=== PATIENT | female | born 1985 | race Caucasian/White ===

== ENCOUNTER 2023-05-06 12:28 | Inpatient (IN) | payer BC, SELFPAY ==
--- NOTE | ~2023-05-06 | US_ITS ---
EXAMINATION: US VENOUS ULTRASOUND WITH DOPPLER LOWER EXTREMITY, LEFT CLINICAL INFORMATION: Calf pain COMPARISON: None available. TECHNIQUE: Ultrasound of the deep veins is performed from the hip to the calf with compression sonography and color and pulse Doppler assessment. Spectral analysis with color-flow imaging is performed. FINDINGS: Thrombus is present in the peroneal and posterior tibial veins extending into the popliteal vein. The femoral vein and common femoral vein as well as the profunda femoris vein appear unremarkable. US/US venous duplex LE LT IMPRESSION: DVT extending from the calf to the popliteal vein.
--- NOTE | ~2023-05-06 | CT_ITS ---
EXAMINATION: CT ANGIOGRAM OF THE CHEST WITH AND WITHOUT CONTRAST (CT PULMONARY ANGIOGRAM FOR PE) CLINICAL INFORMATION: Reason for Exam SOB, known DVT COMPARISON: None available. TECHNIQUE: Prior to contrast administration, noncontrast localization images were obtained. Subsequently, multidetector volumetric imaging was performed from the thoracic inlet to below the diaphragms following the administration of 65 mL Omnipaque 350 intravenous contrast. No contrast reaction reported Sagittal, coronal, and MIP oblique sagittal reformatted images were obtained on the CT workstation, uploaded to PACS, and reviewed. This CT examination was performed using dose optimization techniques as appropriate, variously including the following: *Automated exposure control *Adjustment of mA and/or kV according to patient size (this includes techniques or standardized protocols for targeted exams where dose is matched to indication/reason for exam; i.e. extremities or head) *Use of iterative reconstruction technique Total exam dose-length product 230 mGy-cm FINDINGS: QUALITY OF STUDY/CONTRAST BOLUS: Satisfactory. PULMONARY ARTERIES: This exam is positive for PE. On the left filling defect in 2 segments in the left lower lobe. On the right numerous right lower lobe segments demonstrating thrombus There is also a several right upper lobe segments and right middle lobe segments affected. Some of these areas described above are felt to be only partially occlusive while others appear totally occlusive There is no bowing of the septum. There is no reflux into the hepatic veins. The thoracic inlet is within normal limits. Centrally no significant coronary calcium is seen. Partially imaged upper abdominal structures are unremarkable. Imaging the lung wright. Right lung; No significant infiltrate or effusion. Left lung; No significant infiltrate or effusion. Review of the bone windows demonstrates no suspicious finding. CT/CT angio chest PE protocol IMPRESSION: This exam is abnormal. Positive for PE. Moderate burden. Right greater than left This critical result was discussed with Rosalba Mcpherson at 5:09 PM on 05/06/2023 and it was ascertained that the content and urgency of the report was understood at the time of direct communication. VTE: positive
--- NOTE | 2023-05-06 12:39 | ED.EXTPRO ---
HPI - Extremity Problem General Chief complaint: Extremity Problem Stated complaint: L calf pain Time Seen by Provider: 05/06/23 12:46 Source: patient Mode of arrival: ambulatory Limitations: no limitations History of Present Illness HPI Narrative: Patient is a 37 year old assigned female at with a history of anxiety presenting to the emergency department today with left calf pain and an episode of shortness of breath. Patient states that for the last 3 days she has had left calf pain. 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 Patient states that yesterday, she had an episode of feeling something get stuck in her chest and became short of breath. Patient states that the episode resolved fairly quickly. Patient denies any current dizziness, lightheadedness, abdominal pain, nausea, vomiting, fever, chills, blurry vision, double vision, loss of vision, chest pain, difficulty breathing, shortness of breath, back pain, night sweats, pain with urination, increased urinary frequency, increased urinary urgency, blood in her urine or stool, syncope or a near syncopal episode, recent trauma or falls, bowel incontinence, bladder incontinence, bowel retention, bladder retention, or any other complaints at this time. MD Complaint: extremity pain Onset (ago): day(s) (3) Pain Consistency: constant Location: left and lower extremity Severity scale (1-10): 4 Quality: aching and dull Relieving factors: nothing Exacerbating factors: nothing Associated symptoms: denies other symptoms Related Data Allergies Allergy/AdvReac Type Severity Reaction Status Date / Time No Known Allergies Allergy Unverified 04/05/20 19:27 [No Known Allergies*] Review of Systems Constitutional: Constitutional: Reports no additional constitutional complaints, Denies chills, Denies fever(s) and Denies night sweats Eyes: Eyes: Reports no additional eye complaints, Denies blurry vision, Denies change in vision, Denies diplopia, Denies eye discharge, Denies loss of vision and Denies eye pain ENT: Denies dizziness Cardiovascular: Cardiovascular: Reports no additional cardiovascular complaints, Denies chest pain, Denies lightheadedness, Denies Loss of Consciousness and Reports dyspnea (now resolved) Respiratory: Respiratory: Reports no additional respiratory complaints and Reports dyspnea (now resolved) Gastrointestinal: Gastrointestinal: Reports no additional gastrointestinal complaints, Denies abdominal pain, Denies melena, Denies hematochezia, Denies change in bowel habits and Denies change in stool character Genitourinary: Genitourinary: Denies hematuria, Denies urinary frequency, Denies dysuria, Denies urinary incontinence, Denies urinary hesitancy and Denies urinary urgency Musculoskeletal: Musculoskeletal: Reports no additional musculoskeletal complaints, Denies numbness and Denies tingling Comments: left lower leg pain Neurologic: Denies dizziness, Denies loss of vision, Denies numbness and Denies tingling Psychiatric: Psychiatric: Reports no additional psychiatric complaints Endocrine: Endocrine: Reports no additional endocrine complaints Hematologic/Lymphatic: Hematologic/Lymphatic: Reports no additional hematologic/lymphatic complaints Allergic/Immunologic: Allergic/Immunologic: Reports no additional allergic/immunologic complaints PMFSH Past Medical History Attestation statement: The following information was validated with the patient. Source: old records reviewed and nursing notes reviewed Social History Social History Advance Directives: No Advance Directives Information Provided: No Physical Exam Vital Signs: Vital Signs: Last Vital Signs Temp 97.9 F 05/06/23 12:40 Pulse 67 05/06/23 12:40 Resp 18 05/06/23 12:40 BP 120/78 05/06/23 12:40 Pulse Ox 99 05/06/23 12:40 O2 Del Method Room Air 05/06/23 12:40 BMI result Body Mass Index 26.1 Const: General: cooperative, no acute distress, alert and awake Nutritional Appearance: well nourished Orientation/consciousness: patient oriented x3 Limitations: no limitations HEENT: Head: Yes normal to inspection and Yes atraumatic Ears: hearing grossly normal bilaterally and external ears normal General nose exam: Normal external nose present, no nasal discharge noted and no epistaxis Face and sinus: Yes normal facial exam, No abrasion and No laceration Mouth: Normal oral and palatal mucosa present, no drooling and no muffled voice Eyes: General: appearance normal, both eyes and all related structures Periorbital: periorbital findings normal Eyelids: Yes eyelids normal Conjunctivae: conjunctivae normal Pupils: Equal, round and reactive pupils present EOM: EOMs intact bilaterally Neck: Neck: Yes normal visual inspection, Yes full ROM and Yes no lymphadenopathy Chest: Chest palpation & inspection: normal inspection of the chest Resp: Effort & Inspection: normal respiratory effort and able to speak in complete sentences GI: Inspection: Yes normal to inspection Neuro: General: patient oriented x3 and moves all extremities Cranial nerves: Yes Equal, round and reactive pupils present Cognition (Neuro): normal cognition Motor exam (neuro): 5/5 motor strength present throughout Sensory Exam: Normal double simultaneous stimulation for sensation Coordination: [id number] test normal Extrem: Other: left lower leg swelling General: Yes full ROM and Yes capillary refill normal Psych: Appearance: grossly normal Mental Status: mental status grossly normal Affect: normal affect Attitude: cooperative Thought process: Normal thought process present Thought content: Normal thought content present Insight: Good insight present (Psych) Course Course Course Narrative: RME - 37 yo female presents to the ER for evaluation of worsening left calf pain for the last 3 days. Recently ran 1/2 marathon so attributed it to that but has been getting worse. Minimal swelling per patient. PCP referred to her to the ER for U/S to r/o DVT. Plan: LE doppler Medications Administered Discontinued Medications Generic Name Dose Route Start Last Admin Trade Name Marilu PRN Reason Stop Dose Admin Iohexol 100 ml 05/06/23 16:51 05/06/23 16:51 Iohexol 350 Mg/Ml 100 Ml Infus..Btl IV 05/06/23 16:52 65 ml ONCE ONE Administration Medical Decision Making Medical Decision Making [facility] Narrative: Patient is a 37 year old assigned female at with no reported medical history presenting to the emergency department today with left calf pain and a resolved episode of SOB. Patient's physical exam was as noted in the physical exam portion of this note. Patient's blood work was unremarkable. Patient's left lower leg US showed a DVT. Patient's CTA showed multiple pulmonary emboli in both lungs equaling a moderate clot burden with the right more burdened than the left. I spoke to the vascular team who recommended admission. I spoke with the hospitalist who agreed to admission and recommended beginning heparin. I explained my physical exam findings as well as all test results to the patient. I answered all questions asked by the patient. Patient verbalized agreement and understanding with this treatment plan and admission. Differential Diagnosis Differential Diagnoses: The differential diagnosis associated with the presentation includes DVT PE Calf pain Calf strain Anxiety Admission/Observation Consideration of admission/observation: Escalation of care including admission/observation considered Patient admitted. Consult Healthcare Provider Management of the patient was discussed with: Hospitalist (Agreed to admission and recommended starting heparin.) and Bed And Breakfast Cook (Spoke to the vascular surgeon as noted in the [facility] rationale portion of this note.) Lab Data [facility] Lab Attestation statement: I reviewed the patient's lab results. My interpretation of these studies and their corresponding values is that they are grossly normal. 05/06/23 15:30 05/06/23 15:30 Labs: Lab Results 05/06/23 Range/Units 15:30 WBC 8.8 (4.8-10.8) X10*3/uL RBC 4.24 (4.20-5.50) X10*6/uL Hgb 12.8 (12.0-16.0) g/dl Hct 38.3 (37.0-47.0) % MCV 90.3 (80.0-98.0) fL MCH 30.2 (27.0-33.0) pg MCHC 33.4 (31.0-35.0) g/dl RDW 12.0 (11.0-16.0) % Plt Count 217 (160-400) X10*3/uL MPV 8.8 L (9.4-12.3) fL Immature Gran % (Auto) 0.3 (0.0-0.4) % Neut % (Auto) 63.2 (45-73) % Lymph % (Auto) 29.0 (20-40) % [place] % (Auto) 5.4 (2-11) % Eos % (Auto) 1.3 (0-4) % Baso % (Auto) 0.8 (0-2) % Lymph # (Auto) 2.6 (1.2-4.9) X10*3/uL [place] # (Auto) 0.5 (0.1-1.2) X10*3/uL Eos # (Auto) 0.1 (0.0-0.4) X10*3/uL Baso # (Auto) 0.1 (0.0-0.2) X10*3/uL Abs Immat Gran (auto) 0.03 (0.00-0.03) X10*3/uL Absolute Neuts (auto) 5.6 (2.0-8.3) x10*3/uL Absolute Nucleated RBC 0.000 (0.0-0.012) X10*3/uL Nucleated RBC % (auto) 0.0 (0.0-0.2) /100WBC PT 11.4 (11.1-13.3) SEC INR 0.9 (0.9-1.1) APTT 25.7 L (26.0-36.4) SEC Sodium 140 (135-145) mmol/L Potassium 3.5 (3.3-5.1) mmol/L Chloride 107 (96-108) mmol/L Carbon Dioxide 23 (22-29) mmol/L Anion Gap 14 (12-20) BUN 7 L (9-16) mg/dL Creatinine 0.73 (0.5-1.4) mg/dL Estim Creat Clear Calc 88.7 Estimated GFR > 60 Random Glucose 87 (60-115) mg/dL Calcium 9.6 (8.4-10.2) mg/dL Total Bilirubin 0.6 (0.0-1.0) mg/dL AST 15 (5-31) U/L ALT 12 (0-31) U/L Alkaline Phosphatase 41 (39-117) U/L Total Protein 7.5 (6.5-8.0) g/dL Albumin 4.3 (3.5-5.0) g/dL Beta HCG, Quant < 2 mIU/mL Independent Interpretation I performed an independent interpretation of an: Ultrasound and CT Scan Interpretation: My interpretation is in agreement with the radiologist's impression of these imaging studies. EXAMINATION: US VENOUS ULTRASOUND WITH DOPPLER LOWER EXTREMITY, LEFT CLINICAL INFORMATION: Calf pain COMPARISON: None available. TECHNIQUE: Ultrasound of the deep veins is performed from the hip to the calf with compression sonography and color and pulse Doppler assessment. Spectral analysis with color-flow imaging is performed. FINDINGS: Thrombus is present in the peroneal and posterior tibial veins extending into the popliteal vein. The femoral vein and common femoral vein as well as the profunda femoris vein appear unremarkable. US/US venous duplex LE LT IMPRESSION: DVT extending from the calf to the popliteal vein. Dictated By: Da Mensah MD Signed By: Electronically signed by Da Mensah MD 05/06/23 1430 EXAMINATION: CT ANGIOGRAM OF THE CHEST WITH AND WITHOUT CONTRAST (CT PULMONARY ANGIOGRAM FOR PE) CLINICAL INFORMATION: Reason for Exam SOB, known DVT COMPARISON: None available. TECHNIQUE: Prior to contrast administration, noncontrast localization images were obtained. Subsequently, multidetector volumetric imaging was performed from the thoracic inlet to below the diaphragms following the administration of 65 mL Omnipaque 350 intravenous contrast. No contrast reaction reported Sagittal, coronal, and MIP oblique sagittal reformatted images were obtained on the CT workstation, uploaded to PACS, and reviewed. This CT examination was performed using dose optimization techniques as appropriate, variously including the following: *Automated exposure control *Adjustment of mA and/or kV according to patient size (this includes techniques or standardized protocols for targeted exams where dose is matched to indication/reason for exam; i.e. extremities or head) *Use of iterative reconstruction technique Total exam dose-length product 230 mGy-cm FINDINGS: QUALITY OF STUDY/CONTRAST BOLUS: Satisfactory. PULMONARY ARTERIES: This exam is positive for PE. On the left filling defect in 2 segments in the left lower lobe. On the right numerous right lower lobe segments demonstrating thrombus There is also a several right upper lobe segments and right middle lobe segments affected. Some of these areas described above are felt to be only partially occlusive while others appear totally occlusive There is no bowing of the septum. There is no reflux into the hepatic veins. The thoracic inlet is within normal limits. Centrally no significant coronary calcium is seen. Partially imaged upper abdominal structures are unremarkable. Imaging the lung wright. Right lung; No significant infiltrate or effusion. Left lung; No significant infiltrate or effusion. Review of the bone windows demonstrates no suspicious finding. CT/CT angio chest PE protocol IMPRESSION: This exam is abnormal. Positive for PE. Moderate burden. Right greater than left This critical result was discussed with Rosalba Mcpherson at 5:09 PM on 05/06/2023 and it was ascertained that the content and urgency of the report was understood at the time of direct communication. VTE: positive Dictated By: Kiran Harris MD Signed By: Electronically signed by Kiran Harris MD 05/06/23 6979 Radiology Impression Discussion of test interpretation with radiology: I have reviewed the radiologist's reading. Critical Care Time Critical Care Time Critical Care Time: Yes Total Critical Care Time: 60 Attestation: I spent 60 minutes of Critical Care Time with this patient. This does not include time spent on separately reported billable procedures. Discharge Plan Discharge Clinical Impression: Pulmonary embolism, DVT (deep venous thrombosis) Patient Disposition: Admitted As Inpatient
[2023-05-06 12:40] VITALS: BP 120/78; PULSE 67; RESP 18; TEMP 36.6; O2SAT 99; BMI 26.1
--- NOTE | 2023-05-06 13:03 | PC.NURSE ---
pt a&o x4, pleasant, calm, and cooperative. denies pain or sob. able to ambulate self to bathroom. rr even/unlabored. resting comfortable in room, sitting in chair. plan of care ongoing.
[2023-05-06 15:35] LABS: MANUAL DIFF FLAG NO
--- NOTE | 2023-05-06 15:38 | PC.NURSE ---
20G IV placed, labs drawn and sent. pt resting in stretcher in no apparent distress. denies pain. pt sister at bedside. all pt needs met letitia.
[2023-05-06 15:41] LABS: Basophils Absolute Auto 0.1 X10*3/uL (0.0-0.2); Basophils Percent Auto 0.8 % (0-2); Eosinophils Absolute Auto 0.1 X10*3/uL (0.0-0.4); Eosinophils Percent Auto 1.3 % (0-4); Hematocrit 38.3 % (37.0-47.0); Hemoglobin 12.8 g/dl (12.0-16.0); Imm Gran Abs Auto 0.03 X10*3/uL (0.00-0.03); Imm Gran Pct Auto 0.3 % (0.0-0.4); Lymphocytes Absolute Auto 2.6 X10*3/uL (1.2-4.9); Mean Corpuscular HGB Conc 33.4 g/dl (31.0-35.0); Mean Corpuscular Hemoglobin 30.2 pg (27.0-33.0); Mean Corpuscular Volume 90.3 fL (80.0-98.0); Mean Platelet Volume 8.8 fL (9.4-12.3); Monocytes Absolute Auto 0.5 X10*3/uL (0.1-1.2); Monocytes Percent Auto 5.4 % (2-11); Neutrophils Absolute Auto 5.6 x10*3/uL (2.0-8.3); Neutrophils Percent Auto 63.2 % (45-73); Platelet Count 217 X10*3/uL (160-400); Red Blood Count 4.24 X10*6/uL (4.20-5.50); White Blood Count 8.8 X10*3/uL (4.8-10.8)
[2023-05-06 15:46] LABS: INTERNATIONAL NORM RATIO 0.9 (0.9-1.1); Prothrombin Time 11.4 SEC (11.1-13.3)
[2023-05-06 15:48] LABS: Partial Thromboplastin Time 25.7 SEC (26.0-36.4)
[2023-05-06 15:54] LABS: Alanine Aminotransferase 12 U/L (0-31); Albumin Level 4.3 g/dL (3.5-5.0); Alkaline Phosphatase 41 U/L (39-117); Anion Gap 14 (12-20); Aspartate Amino Transferase 15 U/L (5-31); Bilirubin Total 0.6 mg/dL (0.0-1.0); Blood Urea Nitrogen 7 mg/dL (9-16); Calcium 9.6 mg/dL (8.4-10.2); Carbon Dioxide 23 mmol/L (22-29); Chloride 107 mmol/L (96-108); Creatinine Clr Calc Pharmacy 88.7; Estimated Glomerular Filt Rate > 60; Glucose Random 87 mg/dL (60-115); Potassium 3.5 mmol/L (3.3-5.1); Sodium 140 mmol/L (135-145); Total Protein 7.5 g/dL (6.5-8.0)
[2023-05-06 16:02] LABS: HCG Quantitative < 2 mIU/mL
[2023-05-06] MEDS: iohexoL 350 MG/ML 100 ML INFUS..BTL IV (16:51)
[2023-05-06] MEDS: Heparin Sodium,Porcine/1/2NS 25,000 UNIT/250 ML IV.SOLN 8.61 UNIT IVCONT (18:30)
[2023-05-06] MEDS: Heparin Sodium,Porcine 5,000 UNIT/ML VIAL 4900 UNIT IVPUSH (18:34)
--- NOTE | 2023-05-06 18:46 | PC.NURSE ---
pt brought over to main ED. report given to BALJINDER Jacob. Heparin hung per sep. Dr. Horton updated pt on plan of care at bedside. awaiting bed assignment. pt offers no complaints at this time. rr even/unlabored.
--- NOTE | 2023-05-06 19:00 | P.HPHOSP_ITS ---
History of Present Illness Date of Service: 05/06/23 Chief Complaint: Shortness of breath 37 year old assigned female at with a history of anxiety presenting to the emergency department today with left calf pain and an episode of shortness of breath. Patient states that for the last 3 days she has had left calf pain. 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 Patient states that yesterday, she had an episode of feeling something get stuck in her chest and became short of breath. Patient states that the episode resolved fairly quickly. Patient denies any current dizziness, lightheadedness, abdominal pain, nausea, vomiting, fever, chills, blurry vision, ER COurse In the emergency room ultrasound of left lower extremity demonstrated a DVT extending from the calf to the popliteal vein. Subsequent CTA of the chest demonstrated positive pulmonary emboli a moderate burden right greater than left. Heparin initiated Review of Systems 2 Review of Systems: Admits chest pain with deep inspiration Admits mild shortness of breath Denies nausea vomiting diarrhea Denies fever chills PMFSH Social History Advance Directives: No Advance Directives Information Provided: No Meds Allergies Allergy/AdvReac Type Severity Reaction Status Date / Time No Known Allergies Allergy Unverified 04/05/20 19:27 [No Known Allergies*] Active Medications: Current Medications Acetaminophen (Acetaminophen 325 Mg Tablet) 650 mg PO Q6H PRN PRN Reason: Pain, Mild (Pain Scale 1-3) Heparin Sodium (Porcine) (Heparin Sodium,Porcine 5,000 Unit/Ml Vial) 2,500 unit 40 unit/kg (2500 unit) IVPUSH PROTOCOL BOLUS PRN; Protocol PRN Reason: 40 unit/kg - Heparin Protocol Heparin Sodium (Porcine) (Heparin Sodium,Porcine 5,000 Unit/Ml Vial) 4,900 unit 80 unit/kg (4900 unit) IVPUSH PROTOCOL BOLUS PRN; Protocol PRN Reason: 80 unit/kg - Heparin Protocol Heparin Sodium/Sodium Chloride (Heparin Sodium,Porcine/1/2ns) 25,000 unit in 250 mls @ 0 mls/hr IVCONT .Q0M TRACY; Protocol Last Admin: 05/06/23 18:30 Dose: 14 units/kg/hr, 8.61 mls/hr Lorazepam (Lorazepam 0.5 Mg Tablet) 0.5 mg PO Q6H PRN PRN Reason: Anxiety Ondansetron HCl (Ondansetron Hcl 4 Mg/2 Ml Vial) 4 mg IVPUSH Q8H PRN PRN Reason: Nausea and Vomiting Oxycodone HCl (Oxycodone Hcl Immed Release 5 Mg Tablet) 5 mg PO Q6H PRN PRN Reason: Pain, Severe (Pain Scale 7-10) Sodium Chloride (0.9 % Sodium Chloride Flush 3 Ml Syringe) 3 ml IVFLUSH QSHIFT [facility] Home Medications Medication Instructions Recorded Confirmed Last Taken Type desogestrel-e.estradiol 0.15 1 tab PO DAILY 05/06/23 05/06/23 Unknown History mg-0.02 mg(21)/e.estrad 0.01 mg(5) tablet (Volnea (28)) lorazepam 0.5 mg tablet 0.5 mg PO DAILY PRN Anxiety 05/06/23 05/06/23 Unknown History Physical Exam 2 Vital Signs and Narrative: Vital Signs: Last Vital Signs Temp 97.9 F 05/06/23 12:40 Pulse 67 05/06/23 12:40 Resp 18 05/06/23 12:40 BP 120/78 05/06/23 12:40 Pulse Ox 99 05/06/23 12:40 O2 Del Method Room Air 05/06/23 12:40 BMI result Body Mass Index 26.1 Const: Other: Awake alert oriented x3 no acute distress. Able speak in full sentences Resp: Other: Clear to auscultation bilaterally no rales rhonchi wheezes Cardio: Other: No S4; positive S1-S2; no S3 murmurs rubs or gallops GI: Other: Soft nontender nondistended normoactive bowel sounds Neuro: Other: Cranial nerves 2-12 grossly intact as tested. Motor is 5/5 all extremities. Sensation is intact. Cognition appropriate. Gait not observed Extrem: Other: No edema bilaterally; no calf tenderness Results Labs 05/06/23 15:30 05/06/23 15:30 Labs: Laboratory Results - last 24 hr 05/06/23 15:30 MCV 90.3 MCH 30.2 MCHC 33.4 RDW 12.0 Plt Count 217 MPV 8.8 L Immature Gran % (Auto) 0.3 Neut % (Auto) 63.2 Lymph % (Auto) 29.0 [place] % (Auto) 5.4 Eos % (Auto) 1.3 Baso % (Auto) 0.8 Lymph # (Auto) 2.6 [place] # (Auto) 0.5 Eos # (Auto) 0.1 Baso # (Auto) 0.1 Abs Immat Gran (auto) 0.03 Absolute Neuts (auto) 5.6 Absolute Nucleated RBC 0.000 Nucleated RBC % (auto) 0.0 PT 11.4 INR 0.9 APTT 25.7 L Anion Gap 14 Estim Creat Clear Calc 88.7 Estimated GFR > 60 Random Glucose 87 Calcium 9.6 Total Bilirubin 0.6 AST 15 ALT 12 Alkaline Phosphatase 41 Total Protein 7.5 Albumin 4.3 Beta HCG, Quant < 2 Imaging Radiologist's Impressions: Impressions Venous Duplex 05/06/23 13:30 IMPRESSION: DVT extending from the calf to the popliteal vein. Chest CTA 05/06/23 16:50 IMPRESSION: This exam is abnormal. Positive for PE. Moderate burden. Right greater than left This critical result was discussed with Rosalba Mcpherson at 5:09 PM on 05/06/2023 and it was ascertained that the content and urgency of the report was understood at the time of direct communication. 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 She also complained of some mild left calf pain. Workup in the emergency room consistent with extensive left lower extremity DVT and multiple PEs clot burden greater on the right than the left 1. PE/DVTs -heparin drip as per protocol -hematology consult in a.m. -daily CBCs 2. Anxiety -continue p.r.n. Ativan Full code Heparin Patient requires 2 midnight inpatient stay going forward for IV heparin to treat pulmonary emboli. This cannot be achieved a lesser acute setting Time Spent With Patient Time: Total time managing care of this patient today ____ minutes. Quality Stroke Does the patient have a stroke diagnosis?: No VTE Prior VTE?: No VTE Risk Level:: Medical - moderate - high VTE Device Contraindication: Treatment Not Indicated VTE Drug Contraindication: N/A - Med Ordered
[2023-05-06 20:35] VITALS: BP 104/69; PULSE 76; RESP 18; TEMP 36.9
--- NOTE | 2023-05-06 20:41 | PC.NURSE ---
pt resting comfortably with partner at bedside.
--- NOTE | 2023-05-06 21:06 | ECG_ITS ---
Test Reason : PRE ADMISSION Blood Pressure : / mmHG Vent. Rate : 062 BPM Atrial Rate : 062 BPM P-R Int : 154 ms QRS Dur : 088 ms QT Int : 428 ms P-R-T Axes : 067 080 041 degrees QTc Int : 434 ms Normal sinus rhythm with sinus arrhythmia RSR' or QR pattern in V1 suggests right ventricular conduction delay Otherwise normal ECG When compared with ECG of 21-SEP-2017 14:01, No significant change was found Referred By: King Horton Electronically Signed By:FERN VIVEROS MD
--- NOTE | 2023-05-06 21:35 | PC.NURSE ---
report gven to RN in ED overflow, pt will be transported after EKG is completed.
--- NOTE | 2023-05-06 22:52 | PC.NURSE ---
pt alert and oriented, ambulated well to the bathroom. pt denies any chest pain or SOB at this time. requesting ativan and tylenol for leg pain before bed. pt medicated per SEP.
[2023-05-06] MEDS: Acetaminophen 325 MG TABLET 650 MG PO (22:56)
[2023-05-06] MEDS: LORazepam 0.5 MG TABLET PO (22:57)
--- NOTE | 2023-05-06 23:00 | PC.NURSE ---
belonging list completed
[2023-05-06 23:04] VITALS: BP 114/70; PULSE 57; RESP 17; O2SAT 98
[2023-05-07] VITALS (7 sets, daily range): BP systolic 105–116; BP diastolic 49–70; PULSE 58–70; RESP 12–20; TEMP 36.3–37.1; O2SAT 96–99; BMI 25.6
[2023-05-07 00:32] LABS: PTT Heparin Drip 58.6 SEC (53-77.9)
--- NOTE | 2023-05-07 00:42 | PC.NURSE ---
heparin titration remains the same. PTT-HD is 58.6, indicating no change in rate. Heparin infusing at 14 units/kg/hr
--- NOTE | 2023-05-07 06:15 | PC.NURSE ---
phlebotomy at bedside for PTT lab draw
[2023-05-07 06:26] LABS: Hematocrit 35.4 % (37.0-47.0); Hemoglobin 11.6 g/dl (12.0-16.0); Mean Corpuscular HGB Conc 32.8 g/dl (31.0-35.0); Mean Corpuscular Hemoglobin 30.3 pg (27.0-33.0); Mean Corpuscular Volume 92.4 fL (80.0-98.0); Platelet Count 200 X10*3/uL (160-400); Red Blood Count 3.83 X10*6/uL (4.20-5.50); Red Cell Distribution Width 11.9 % (11.0-16.0); White Blood Count 5.4 X10*3/uL (4.8-10.8)
[2023-05-07 06:36] LABS: INTERNATIONAL NORM RATIO 0.9 (0.9-1.1); Prothrombin Time 11.3 SEC (11.1-13.3)
[2023-05-07 06:38] LABS: PTT Heparin Drip 53.1 SEC (53-77.9)
--- NOTE | 2023-05-07 06:47 | PC.NURSE ---
Second PTT HD in therapeutic range of 53.1 Heparin drip continues at 14u/kg/hr. No changes made at this time per protocol. Pt sleeping at the bedside. No apparent distress noted. Breaths are even regular and unlabored with equal chest rises.
--- NOTE | 2023-05-07 06:51 | PHA.MEDREC ---
Pharmacy Consult ? Medication Reconciliation Pharmacy has completed the medication reconciliation.
--- NOTE | 2023-05-07 07:33 | MHC.CM.PN ---
PT REPORTS SHE LIVES AT HOME WITH HER PARENTS AND IS INDEPENDENT WITH CARE PT WORKS AND DRIVES, HAS NO DME AND NO SERVICES PT DECLINES TO COMPLETE A HCP, HOWEVER ACCEPTS THE INFORMATION AND DOCUMENT PCP: ELIO VALLE DCP: HOME NO SERVICES VIA SELF TRANSPORT
[2023-05-07] MEDS: 0.9 % Sodium Chloride Flush 3 ML SYRINGE IVFLUSH (08:20)
--- NOTE | 2023-05-07 12:04 | PC.NURSE ---
RN TO RN REPORT GIVEN TO KAYE. PT AWARE OF PLAN OF CARE.
[2023-05-07] MEDS: Acetaminophen Oral Liquid 650 MG/20.3 ML SOLUTION PO ×2 (14:19→21:21)
--- NOTE | 2023-05-07 14:30 | HO.PM.IMPN ---
Subjective Subjective Date of Service: 05/07/23 Interval History: Remains asymptomatic on heparin. No complaints of shortness of breath or chest pain Review of Systems Denies chest pain Denies fever chills Denies nausea vomiting diarrhea Denies shortness of breath Denies family history of clotting or family history of multiple miscarriages Physical Exam Vital Signs: Vital Signs: Last Vital Signs Temp 97.5 F 05/07/23 12:30 Pulse 58 05/07/23 12:30 Resp 18 05/07/23 12:30 BP 116/69 05/07/23 12:30 Pulse Ox 99 05/07/23 12:30 O2 Del Method Room Air 05/07/23 12:30 BMI result Body Mass Index 26.1 Const: Other: Awake alert oriented x3 no acute distress. Able speak in full sentences Resp: Other: Clear to auscultation bilaterally no rales rhonchi wheezes Cardio: Other: No S4; positive S1-S2; no S3 murmurs rubs or gallops GI: Other: Soft nontender nondistended normoactive bowel sounds Neuro: Other: Cranial nerves 2-12 grossly intact as tested. Motor is 5/5 all extremities. Sensation is intact. Cognition appropriate. Gait not observed Extrem: Other: No edema bilaterally; no calf tenderness Objective Data Active Medications Acetaminophen (Acetaminophen 325 Mg Tablet) 650 mg PO Q6H PRN PRN Reason: Pain, Mild (Pain Scale 1-3) Last Admin: 05/06/23 22:56 Dose: 650 mg Documented By: LAUREL Acetaminophen (Acetaminophen Oral Liquid 650 Mg/20.3 Ml Solution) 650 mg PO Q4H PRN PRN Reason: Pain, Mild (Pain Scale 1-3) Last Admin: 05/07/23 14:19 Dose: 650 mg Documented By: HAILEE Heparin Sodium (Porcine) (Heparin Sodium,Porcine 5,000 Unit/Ml Vial) 2,500 unit 40 unit/kg (2500 unit) IVPUSH PROTOCOL BOLUS PRN; Protocol PRN Reason: 40 unit/kg - Heparin Protocol Heparin Sodium (Porcine) (Heparin Sodium,Porcine 5,000 Unit/Ml Vial) 4,900 unit 80 unit/kg (4900 unit) IVPUSH PROTOCOL BOLUS PRN; Protocol PRN Reason: 80 unit/kg - Heparin Protocol Heparin Sodium/Sodium Chloride (Heparin Sodium,Porcine/1/2ns) 25,000 unit in 250 mls @ 0 mls/hr IVCONT .Q0M [facility]; Protocol Last Admin: 05/06/23 18:30 Dose: 14 units/kg/hr, 8.61 mls/hr Documented By: NÉSTORC Co-signed By: HAMILTON Lorazepam (Lorazepam 0.5 Mg Tablet) 0.5 mg PO Q6H PRN PRN Reason: Anxiety Last Admin: 05/06/23 22:57 Dose: 0.5 mg Documented By: LAUREL Ondansetron HCl (Ondansetron Hcl 4 Mg/2 Ml Vial) 4 mg IVPUSH Q8H PRN PRN Reason: Nausea and Vomiting Oxycodone HCl (Oxycodone Hcl Immed Release 5 Mg Tablet) 5 mg PO Q6H PRN PRN Reason: Pain, Severe (Pain Scale 7-10) Sodium Chloride (0.9 % Sodium Chloride Flush 3 Ml Syringe) 3 ml IVFLUSH QSHIFT [facility] Last Admin: 05/07/23 08:20 Dose: 3 ml Documented By: SCOC Labs 05/07/23 06:15 05/06/23 15:30 Labs: Laboratory Results - last 24 hr 05/06/23 05/07/23 05/07/23 15:30 00:10 06:15 MCV 90.3 92.4 MCH 30.2 30.3 MCHC 33.4 32.8 RDW 12.0 11.9 Plt Count 217 200 MPV 8.8 L 9.0 L Immature Gran % (Auto) 0.3 Neut % (Auto) 63.2 Lymph % (Auto) 29.0 [place] % (Auto) 5.4 Eos % (Auto) 1.3 Baso % (Auto) 0.8 Lymph # (Auto) 2.6 [place] # (Auto) 0.5 Eos # (Auto) 0.1 Baso # (Auto) 0.1 Abs Immat Gran (auto) 0.03 Absolute Neuts (auto) 5.6 Absolute Nucleated RBC 0.000 0.000 Nucleated RBC % (auto) 0.0 0.0 PT 11.4 11.3 INR 0.9 0.9 APTT 25.7 L aPTT Heparin Protocol 58.6 53.1 Anion Gap 14 Estim Creat Clear Calc 88.7 Estimated GFR > 60 Random Glucose 87 Calcium 9.6 Total Bilirubin 0.6 AST 15 ALT 12 Alkaline Phosphatase 41 Total Protein 7.5 Albumin 4.3 Beta HCG, Quant < 2 Assessment and Plan (1) Pulmonary embolism: Status: Acute (2) DVT (deep venous thrombosis): Status: Acute Plan 37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 She also complained of some mild left calf pain. Workup in the emergency room consistent with extensive left lower extremity DVT and multiple PEs clot burden greater on the right than the left 1. PE/DVTs -heparin drip as per protocol -hematology consult pending -daily CBCs 2. Anxiety -continue p.r.n. Ativan Full code Heparin Patient requires 2 midnight inpatient stay going forward for IV heparin to treat pulmonary emboli. This cannot be achieved a lesser acute setting Time Spent With Patient Time: Total time managing care of this patient today ____ minutes. Quality Stroke Does the patient have a stroke diagnosis?: No VTE Prior VTE?: No VTE Risk Level:: Medical - moderate - high VTE Device Contraindication: Treatment Not Indicated VTE Drug Contraindication: N/A - Med Ordered
--- NOTE | 2023-05-07 17:19 | PM.HEMONCCN ---
Subjective - Subjective Chief complaint: Consult for: 1. DVT. 2. PE. Patient: new to practice Consult date: 05/07/23 Primary Care Provider: Sabra Hall MD Medical Summary: DIAGNOSIS: 1. PE. 2. DVT. HPI - Consult Narrative Reason for consult: Consult for: 1. PE. 2. DVT. Narrative: Harika Perez is a 37 year old lady with a recent diagnosis of pulmonary emboli and DVT. She had presented with dyspnea and with left calf pain. She states that for the last 3 days she has had left calf pain. 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 She also stated she had an episode of feeling something get stuck in her chest and became short of breath. The episode resolved fairly quickly. She denies any current dizziness, lightheadedness, abdominal pain, nausea, vomiting, fever, chills, blurry vision, An ultrasound of left lower extremity demonstrated: A DVT extending from the calf to the popliteal vein. Subsequent CTA of the chest demonstrated: Positive pulmonary emboli a moderate burden right greater than left. She was started on Heparin. Review of Systems Review of Systems: C/o fatigue. No Fever chills nor night sweats. Admits chest pain with deep inspiration Admits mild shortness of breath Denies nausea vomiting diarrhea Denies urinary complaints. No jt pains. No focal weakness. Denies depresion. PMFSH: history of anxiety. FAMILY HISTORY: Negative for DVT nor Known hypercoagulable state. Social History: She work at [employer] She coaches running. She is engaged. No smoking. Drinks socially. Advance Directives: No Advance Directives Information Provided: No Review of Systems - Constitutional Reports system reviewed and no additional complaints, except as documented, Denies lack of energy, Denies weight loss - Eyes Reports system reviewed and no additional complaints, except as documented - ENT Reports system reviewed and no additional complaints, except as documented - Cardiovascular Reports system reviewed and no additional complaints, except as documented - Respiratory Reports no additional respiratory complaints - Gastrointestinal Reports system reviewed and no additional complaints, except as documented - Genitourinary Reports no additional female genitourinary complaints - Musculoskeletal Reports system reviewed and no additional complaints, except as documented - Integumentary/Breasts Skin/Breast: Reports no additional skin complaints - Neurologic Denies dizziness, Denies loss of vision, Denies numbness, Denies tingling - Psychiatric Reports system reviewed and no additional complaints, except as documented - Endocrine Reports no additional endocrine complaints - Hematologic/Lymphatic Reports system reviewed and no additional complaints, except as documented - Allergic/Immunologic Reports system reviewed and no additional complaints, except as documented Oncology Screenings - ECOG Performance Status ECOG Performance Status: 0 PMFSH Social History: Social History (Last Reviewed 05/06/23 @ 19:02 by King Horton DO) Living Situation History: Household Members: Family Housing: House Do you presently have visiting nurse or other home services: No Tobacco History: Patient Tobacco Use Status: Never used Tobacco Second Hand Smoke Exposure: No Occupation Assessmet: service: No Second hand tobacco smoke exposure: No Home Medications and Allergies Current Medications: Current Medications Acetaminophen (Acetaminophen 325 Mg Tablet) 650 mg PO Q6H PRN PRN Reason: Pain, Mild (Pain Scale 1-3) Last Admin: 05/06/23 22:56 Dose: 650 mg Acetaminophen (Acetaminophen Oral Liquid 650 Mg/20.3 Ml Solution) 650 mg PO Q4H PRN PRN Reason: Pain, Mild (Pain Scale 1-3) Last Admin: 05/07/23 14:19 Dose: 650 mg Heparin Sodium (Porcine) (Heparin Sodium,Porcine 5,000 Unit/Ml Vial) 2,500 unit 40 unit/kg (2500 unit) IVPUSH PROTOCOL BOLUS PRN; Protocol PRN Reason: 40 unit/kg - Heparin Protocol Heparin Sodium (Porcine) (Heparin Sodium,Porcine 5,000 Unit/Ml Vial) 4,900 unit 80 unit/kg (4900 unit) IVPUSH PROTOCOL BOLUS PRN; Protocol PRN Reason: 80 unit/kg - Heparin Protocol Heparin Sodium/Sodium Chloride (Heparin Sodium,Porcine/1/2ns) 25,000 unit in 250 mls @ 0 mls/hr IVCONT .Q0M [facility]; Protocol Last Admin: 05/06/23 18:30 Dose: 14 units/kg/hr, 8.61 mls/hr Lorazepam (Lorazepam 0.5 Mg Tablet) 0.5 mg PO Q6H PRN PRN Reason: Anxiety Last Admin: 05/06/23 22:57 Dose: 0.5 mg Ondansetron HCl (Ondansetron Hcl 4 Mg/2 Ml Vial) 4 mg IVPUSH Q8H PRN PRN Reason: Nausea and Vomiting Oxycodone HCl (Oxycodone Hcl Immed Release 5 Mg Tablet) 5 mg PO Q6H PRN PRN Reason: Pain, Severe (Pain Scale 7-10) Sodium Chloride (0.9 % Sodium Chloride Flush 3 Ml Syringe) 3 ml IVFLUSH QSHIFT [facility] Last Admin: 05/07/23 16:05 Dose: Not Given Home Medications Medication Instructions Recorded Confirmed Type lorazepam 0.5 mg tablet 0.5 mg PO DAILY PRN Anxiety 05/06/23 05/06/23 History Allergies Allergy/AdvReac Type Severity Reaction Status Date / Time No Known Allergies Allergy Unverified 04/05/20 19:27 [No Known Allergies*] Physical Exam Vital signs: Vital Signs Temp 98.3 F 05/07/23 15:07 Pulse 62 05/07/23 15:07 Resp 18 05/07/23 15:07 BP 113/57 L 05/07/23 15:07 Pulse Ox 99 05/07/23 15:07 O2 Del Method Room Air 05/07/23 15:07 Intake & Output 05/06/23 05/07/23 05/07/23 18:59 06:59 18:59 Intake Total 0 / 0 360 / 360 Output Total 0 / 0 Balance 0 / 0 360 / 360 Urine Output (Average ml/kg/hr) 0.00 0.00 Intake: Intake, Oral Amount 0 / 0 360 / 360 Output: Output, Urine Amount 0 / 0 Other: Lunch % Eaten 75% Number of Unmeasured Voids 1 Weight 61.5 kg 61.5 kg [place] Weight in Grams [id number] Weight 61.5 kg - Constitutional Present: moderate distress - Routine HEENT Exam Head: Present: normal inspection, normocephalic Eye: Present: normal appearance ENT: Present: mucous membranes moist - Routine Neck Exam Present: swelling - Routine Respiratory Exam Present: decreased breath sounds, CTAB - Routine Cardiovascular Exam Cardiovascular: Present: RRR, S1, S2 - Routine Extremities Exam Present: pedal edema, tenderness. Absent: nontender - Routine Skin Exam Present: normal turgor - Routine Neurological Exam Present: alert, oriented X3 - Routine Psychiatric Exam Present: anxious Hem/Onc Consult Result - Labs CBC & Chem 7: 05/07/23 06:15 05/06/23 15:30 Labs: Short CBC 10/19/23 Range/Units 06:15 WBC 5.4 (4.8-10.8) X10*3/uL Hgb 11.6 L (12.0-16.0) g/dl Hct 35.4 L (37.0-47.0) % Plt Count 200 (160-400) X10*3/uL Assessment and Plan Patient Active problem list reviewed?: Yes (1) Pulmonary embolism Status: Acute Assessment and plan: This is a pleasant 37-year-old lady who presents with pulmonary embolism and DVT. CTA from 05/06 revealed: IMPRESSION: This exam is abnormal. Positive for PE. Moderate burden. Right greater than left Ultrasound of the leg revealed: DVT extending from the calf to the popliteal vein. Her risk factor include being on oral contraceptives. She has been started on IV heparin. PLAN: Will switch her over to a NOAC, once stable. Choice would depend upon her insurance coverage. She is a candidate for hypercoagulable workup however will proceed with that in an outpatient setting. Thank you for the consult, Will follow along with you, Cc: Dr. Hanna. - Time Spent With Patient Time Spent with Patient (in minutes): 30
[2023-05-07] MEDS: Heparin Sodium,Porcine/1/2NS 25,000 UNIT/250 ML IV.SOLN 8.61 UNIT IVCONT (19:23)
--- NOTE | 2023-05-07 19:44 | PC.NURSE ---
20G IV placed, labs drawn and sent. pt resting in stretcher in no apparent distress. denies pain. pt sister at bedside. all pt needs met letitia.
[2023-05-07] MEDS: LORazepam 0.5 MG TABLET PO (21:21)
[2023-05-08 00:31] VITALS: BP 113/59; PULSE 66; RESP 16; TEMP 36.9; O2SAT 96
[2023-05-08 06:23] LABS: PTT Heparin Drip 45.8 SEC (53-77.9)
[2023-05-08] MEDS: Heparin Sodium,Porcine 5,000 UNIT/ML VIAL 2500 UNIT IVPUSH (06:31)
[2023-05-08 07:20] VITALS: BP 102/58; PULSE 66; RESP 18; TEMP 36.6; O2SAT 97
[2023-05-08] MEDS: Apixaban 5 MG TABLET 10 MG PO (11:08)
[2023-05-08] MEDS: Acetaminophen Oral Liquid 650 MG/20.3 ML SOLUTION PO (11:12)
--- NOTE | 2023-05-08 11:32 | MHC.CM.PN ---
Erikakristin discharged to home self care. She has arranged for family to provide transport home.
--- NOTE | 2023-05-08 11:34 | PM.DS ---
DS: Providers Provider Date of Service: 05/08/23 Date of admission: 05/06/23 18:58 Date of discharge: 05/08/23 Primary care physician: Sabra Hall MD Consults: 05/07/23 07:34 Consult to Hematology / Oncology Stat Consulting Provider: Sera Griffin Reason for consultation: DVT w/Multiple PE Has provider been notified: Yes DS: Diagnosis Discharge Diagnosis (1) Pulmonary embolism: Status: Acute DS: Summary Hospital Course Hospital Course: 37 year old assigned female at with a history of anxiety presenting to the emergency department today with left calf pain and an episode of shortness of breath. Patient states that for the last 3 days she has had left calf pain. 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 Patient states that yesterday, she had an episode of feeling something get stuck in her chest and became short of breath. Patient states that the episode resolved fairly quickly. Patient denies any current dizziness, lightheadedness, abdominal pain, nausea, vomiting, fever, chills, blurry vision, ER Course In the emergency room ultrasound of left lower extremity demonstrated a DVT extending from the calf to the popliteal vein. Subsequent CTA of the chest demonstrated positive pulmonary emboli a moderate burden right greater than left. Heparin initiated. Patient remained on drip for 48 hours and seen on consultation by Dr. Griffin. Her recommendation was Eliquis as per protocol and she will follow-up in the office. Patient has an appointment with Dr. Griffin on 05/14/2023 at 08:30. At this point time she is medically acceptable for discharge. She has been instructed not to run until discussed with Dr. Griffin Time Spent with Patient Time attestation: Total time managing care of this patient today ____ minutes. Discharge coordination time: Greater than 30 minutes Quality: Safe Use of Opioids Does Pt have an Active Cancer Diagnosis on the Problem List?: No Quality: Stroke Does the patient have a stroke diagnosis?: No Physical Exam Vital Signs: Vital Signs: Last Vital Signs Temp 98 F 05/08/23 07:20 Pulse 66 05/08/23 07:20 Resp 18 05/08/23 07:20 BP 102/58 L 05/08/23 07:20 Pulse Ox 97 05/08/23 07:20 O2 Del Method Room Air 05/08/23 07:20 BMI result Body Mass Index 25.6 Const: Other: Awake alert oriented x3 no acute distress. Able speak in full sentences Resp: Other: Clear to auscultation bilaterally no rales rhonchi wheezes Cardio: Other: No S4; positive S1-S2; no S3 murmurs rubs or gallops GI: Other: Soft nontender nondistended normoactive bowel sounds Neuro: Other: Cranial nerves 2-12 grossly intact as tested. Motor is 5/5 all extremities. Sensation is intact. Cognition appropriate. Gait not observed Extrem: Other: No edema bilaterally; no calf tenderness DS: Data Data Completed and Pending Labs on day of discharge: Laboratory Results - last 24 hr 05/08/23 05:13 Hold Purple Top SEE NOTE aPTT Heparin Protocol 45.8 L Discharge Plan Discharge Anticipated Discharge Date/Time: 05/08/23 11:12 Patient Disposition: Home, Self-Care Discharge Diagnosis: Acute DVT with PEs Referrals: Sabra Toro MD [Primary Care Provider] - 1 Week Discharge Medications: New Eliquis 5 mg tablet 10 mg PO BID Qty: 28 0RF Continued lorazepam 0.5 mg Tablet 0.5 mg PO DAILY PRN (Reason: Anxiety) Discharge Orders: Discharge Order (Routine); Ordered 05/08/23 Ordered By: King Horton Diet: Advance to usual diet Activity on Discharge: No Running or jogging Stand Alone Forms: Patient Portal Discharge page Care Plan Goals: Continue Eliquis as ordered 10 mg(2 tabs) twice a day for 7 days ; then 1 tab 5 mg twice daily Health Concerns: No running until discussed with Dr. Griffin. You have an appointment 05/14/2023 at 08:30 Plan of Treatment: Tylenol for pain Assessment: See discharge summary
== END 2023-05-08 12:25 | disposition home or self-care (01) | DRG 197 ==
LOC: HO.ED 18:17 → HO.EDOVER 19:11 → HO.S3 05-07 11:39
PROVIDERS: Physician Assistant Medical; Admitting Provider Hospitalist; Emergency Provider Emergency Medicine Emergency Medical Services; PCP Internal Medicine; Visit Provider Hospitalist
DX: I82.462 Acute embolism and thrombosis of left calf muscular vein (principal); I26.94 Multiple subsegmental thrombotic pulmonary emboli without acute cor pulmonale; F41.9 Anxiety disorder, unspecified; Z79.3 Long term (current) use of hormonal contraceptives; Z79.899 Other long term (current) drug therapy
CPT/HCPCS: 36415; 71275; 80053; 84702; 85025; 85027; 85610; 85730; 93005; 93971; 99285; J1643; Q9967

== ENCOUNTER → 2023-05-06 12:55 | Outpatient (BNV) | payer BC, SELFPAY | PROVIDERS: Emergency Provider Emergency Medicine Emergency Medical Services; PCP Internal Medicine; Visit Provider Hospitalist | DX: I26.94 Multiple subsegmental thrombotic pulmonary emboli without acute cor pulmonale (principal); I82.462 Acute embolism and thrombosis of left calf muscular vein | CPT/HCPCS: 99223; 99233; 99239 ==

== ENCOUNTER → 2023-05-06 18:58 | Outpatient (BNV) | payer BC, SELFPAY | PROVIDERS: Admitting Provider Hospitalist; Emergency Provider Emergency Medicine Emergency Medical Services; PCP Internal Medicine; Visit Provider Internal Medicine Medical Oncology | DX: I82.462 Acute embolism and thrombosis of left calf muscular vein (principal); I26.99 Other pulmonary embolism without acute cor pulmonale | CPT/HCPCS: 99222 ==

== ENCOUNTER → 2023-05-14 08:40 | Outpatient (BNV) | payer BC, SELFPAY | PROVIDERS: PCP Internal Medicine; Visit Provider Internal Medicine Medical Oncology | DX: I26.99 Other pulmonary embolism without acute cor pulmonale (principal) | CPT/HCPCS: 99213 ==

== ENCOUNTER 2023-05-27 12:39 | Emergency (ER) | payer BC, SELFPAY ==
--- NOTE | ~2023-05-27 | US_ITS ---
EXAMINATION: US VENOUS ULTRASOUND WITH DOPPLER LOWER EXTREMITY, LEFT CLINICAL INFORMATION: DVT. Pain. COMPARISON: Previous exam 05/06/2023 TECHNIQUE: Ultrasound of the deep veins is performed from the hip to the calf with compression sonography and color and pulse Doppler assessment. Spectral analysis with color-flow imaging is performed. FINDINGS: The left common femoral, superficial femoral, profunda femoral and popliteal veins are patent. There is a small amount of thrombus seen in one of the posterior tibial veins otherwise thrombus in the tibial peroneal trunk and popliteal vein has resolved. There is no Quigley's cyst. The contralateral right common femoral vein is patent. US/US venous duplex LE LT IMPRESSION: Small amount of residual thrombus in one of the posterior tibial veins. Previously identified thrombus in the tibioperoneal trunk extending into the popliteal vein 05/06/2023 has otherwise resolved.
--- NOTE | ~2023-05-27 | XR_ITS ---
EXAMINATION: XR CHEST CLINICAL INFORMATION: Chest pain COMPARISON: Previous chest x-ray from 2017 and chest CTA April 2023 TECHNIQUE: 2 views of the chest were obtained. FINDINGS: No significant abnormality is noted involving the heart, lungs, mediastinum, bony thorax or soft tissues. XR/XR chest 2V IMPRESSION: Unremarkable examination.
[2023-05-27 12:59] VITALS: BP 121/78; PULSE 68; RESP 18; TEMP 36.7; O2SAT 98; BMI 24.6
--- NOTE | 2023-05-27 13:04 | ED_ITS ---
HPI - General Adult General Chief complaint: General Medical Stated complaint: HX PE- new L chest pain-l leg pain Time Seen by Provider: 05/27/23 18:09 Source: patient, RN notes reviewed and old records reviewed Mode of arrival: ambulatory Limitations: no limitations History of Present Illness HPI narrative: 37-year-old female with past medical history significant for a recently diagnosed DVT/PE on Eliquis, anxiety presents for evaluation of left leg cramping and chest tightness. Patient was diagnosed with DVT/PE on 05/06/2023. She was ultimately discharged on 05/08/2023 on Eliquis. No DVT is in the left lower extremity from the calf veins to the popliteal vein Patient states that at work today around noon, 7 hours prior to my evaluation she experience some cramping in her left thigh as well as some tightness in the left side of her chest. She states it is somewhat consistent with her anxiety but she did not know if it was related to her new blood clot as it is still a new diagnosis that she is getting use to She did not have any shortness of breath or palpitations Her leg does not seem more swollen Eyes any fevers, chills, cough Related Data Home Medications Medication Instructions Recorded Confirmed lorazepam 0.5 mg tablet 0.5 mg PO DAILY PRN Anxiety 05/06/23 05/14/23 Previous Rx's Medication Instructions Recorded apixaban 5 mg tablet (Eliquis) 10 mg (2 x 5 mg) PO BID #28 tabs 05/08/23 Allergies Allergy/AdvReac Type Severity Reaction Status Date / Time doxycycline Allergy Rash Verified 05/14/23 09:01 Review of Systems 2 Constitutional: Constitutional: Denies chills, Denies fever(s) and Denies headache(s) ENT: Denies headache(s) Cardiovascular: Cardiovascular: Reports chest pain, Reports chest pain at rest and Denies dyspnea Respiratory: Respiratory: Denies cough and Denies dyspnea Gastrointestinal: Gastrointestinal: Denies abdominal pain, Denies nausea and Denies vomiting Neurologic: Denies headache(s) [facility] Past Medical History Medical History (Updated 05/27/23 @ 20:41 by James Moncada) DVT (deep venous thrombosis) Pulmonary embolism Family History Family History (Updated 05/14/23 @ 09:00 by Andrew Blackburn) Maternal Grandfather PE (pulmonary thromboembolism) Social History Social History (Updated 05/14/23 @ 09:00 by Andrew Blackburn) Household Members: Family Housing: House Do you presently have visiting nurse or other home services: No Alcohol intake: current Alcohol intake frequency: holidays/special occasions only Patient Tobacco Use Status: Never used Tobacco Smoked in Last 30 Days: No Second Hand Smoke Exposure: No Advance Directives: No Advance Directives Information Provided: No service: No Current occupational status: employed Physical Exam ED Vital Signs: Vital Signs - 24 hr 05/27/23 12:59 05/27/23 16:43 05/27/23 19:13 Temperature 98.0 F 97.7 F Pulse Rate 68 75 72 Respiratory Rate 18 18 15 Blood Pressure 121/78 119/67 105/71 Pulse Oximetry 98 99 98 Oxygen Delivery Method Room Air Room Air Room Air BMI result Body Mass Index 24.6 Const General: healthy appearing, comfortable, no acute distress, alert and awake Nutritional Appearance: well nourished Orientation/consciousness: patient oriented x3 HENMT Head: Yes normocephalic and Yes atraumatic Eyes Eyelids: Yes eyelids normal Conjunctivae: conjunctivae normal Sclerae: sclerae normal Corneas: corneas normal Pupils: Equal, round and reactive pupils present EOM: EOMs intact bilaterally Neck Neck: Yes full ROM Resp Effort & Inspection: normal respiratory effort, able to speak in complete sentences, no audible wheezes and not labored Auscultation: clear to auscultation bilaterally Cardio Other: No significant lower extremity edema Rate: regular rate Rhythm: regular rhythm Skin General skin exam: elasticity normal Neuro General: patient oriented x3 Cranial nerves: Yes Equal, round and reactive pupils present and Yes Bilaterally intact EOM present Cognition (Neuro): normal cognition Extrem Other: Moving all extremities well without any obvious deformities Course Course Course Narrative: This is an RME: Additional HPI, ROS, PE not included below will be deferred to primary provider. This is a 37-year-old female, with a recent diagnosis of DVT extending from calf to the popliteal vein, and PE confirmed by CTA presenting to the emergency department with complaints of tightness and chest which started about 1 hour ago. Patient denying any shortness of breath. No nausea vomiting or diarrhea. Endorsing some lightheadedness. Vital signs within normal limits. Patient is on Eliquis, no missed dosages. Plan: Labs, EKG, CXR Reevaluation(s) Reevaluation #1: Patient's ultrasound shows resolving clot the left lower extremity Time: 20:39 Medical Decision Making Medical Decision Making [facility] Narrative: 37-year-old female presents for evaluation of chest tightness and left leg pain. She has a known history of DVT and PE. Her vital signs are within normal limits, she is not tachycardic, tachypneic or hypoxic and has not been throughout her stay. Her EKG is a sinus rhythm without ischemia. Her labs are reassuring, her troponin is negative I did add on a BNP to evaluate for worsening heart strain. Given the patient's vital signs are stable, she is currently asymptomatic, I do not see there is any emergent indication for CT angiography. I do not expect there to be much interval change, the patient has been compliant with her Eliquis. Will get an ultrasound of the left lower extremity to evaluate for worsening clot burden. If there appears to be worsening clot burden the left lower extremity then we will reconsider CT angiography. Differential Diagnosis Differential Diagnoses: The differential diagnosis associated with the presentation includes DVT PE Heart strain Anxiety Chest pain ACS Admission/Observation Consideration of admission/observation: Escalation of care including admission/observation considered Patient has known history of PE complaining of chest pain. Workup will determine disposition Lab Data MDM Lab Attestation statement: I reviewed the patient's lab results. No leukocytosis or anemia, normal platelet count. No electrolyte abnormalities. Normal renal function Negative troponin. 05/27/23 13:16 05/27/23 13:16 Labs: Lab Results 05/27/23 Range/Units 13:16 WBC 6.0 (4.8-10.8) X10*3/uL RBC 4.57 (4.20-5.50) X10*6/uL Hgb 13.6 (12.0-16.0) g/dl Hct 41.2 (37.0-47.0) % MCV 90.2 (80.0-98.0) fL MCH 29.8 (27.0-33.0) pg MCHC 33.0 (31.0-35.0) g/dl RDW 11.8 (11.0-16.0) % Plt Count 265 (160-400) X10*3/uL MPV 8.6 L (9.4-12.3) fL Immature Gran % (Auto) 0.3 (0.0-0.4) % Neut % (Auto) 52.7 (45-73) % Lymph % (Auto) 38.5 (20-40) % [place] % (Auto) 6.0 (2-11) % Eos % (Auto) 1.7 (0-4) % Baso % (Auto) 0.8 (0-2) % Lymph # (Auto) 2.3 (1.2-4.9) X10*3/uL [place] # (Auto) 0.4 (0.1-1.2) X10*3/uL Eos # (Auto) 0.1 (0.0-0.4) X10*3/uL Baso # (Auto) 0.1 (0.0-0.2) X10*3/uL Abs Immat Gran (auto) 0.02 (0.00-0.03) X10*3/uL Absolute Neuts (auto) 3.2 (2.0-8.3) x10*3/uL Absolute Nucleated RBC 0.000 (0.0-0.012) X10*3/uL Nucleated RBC % (auto) 0.0 (0.0-0.2) /100WBC PT 13.7 H D (11.1-13.3) SEC INR 1.1 (0.9-1.1) APTT 34.4 D (26.0-36.4) SEC Sodium 138 (135-145) mmol/L Potassium 4.2 (3.3-5.1) mmol/L Chloride 105 (96-108) mmol/L Carbon Dioxide 26 (22-29) mmol/L Anion Gap 11 L (12-20) BUN 7 L (9-16) mg/dL Creatinine 0.78 (0.5-1.4) mg/dL Estim Creat Clear Calc 80.7 Estimated GFR > 60 Random Glucose 96 (60-115) mg/dL Calcium 9.5 D (8.4-10.2) mg/dL Total Bilirubin 0.6 (0.0-1.0) mg/dL Direct Bilirubin 0.2 (0.0-0.5) mg/dL AST 17 (5-31) U/L ALT 12 (0-31) U/L Alkaline Phosphatase 42 (39-117) U/L Troponin I High Sens < 2.7 (<3.5-17.0) ng/L Total Protein 7.3 (6.5-8.0) g/dL Albumin 4.4 (3.5-5.0) g/dL Independent Interpretation I performed an independent interpretation of an: EKG (Normal sinus rhythm with sinus arrhythmia.) Discharge Plan Discharge Clinical Impression: Chest pain, Acute pain of left lower extremity Patient Disposition: Home, Self-Care Instructions: Anxiety (ED) Additional Instructions: Your workup in the emergency department today was reassuring. Your ultrasound shows improving clot burden of the left lower extremity. Continue taking your Eliquis Your blood work was also reassuring Your vital signs were within normal limits Prescriptions: No Action lorazepam 0.5 mg Tablet 0.5 mg PO DAILY PRN (Reason: Anxiety) Eliquis 5 mg tablet 10 mg PO BID Qty: 28 0RF
--- NOTE | 2023-05-27 13:06 | ECG_ITS ---
Test Reason : CP, HX OF PE Blood Pressure : / mmHG Vent. Rate : 074 BPM Atrial Rate : 074 BPM P-R Int : 156 ms QRS Dur : 080 ms QT Int : 398 ms P-R-T Axes : 064 080 043 degrees QTc Int : 441 ms Normal sinus rhythm with sinus arrhythmia RSR' or QR pattern in V1 suggests right ventricular conduction delay Nonspecific T wave abnormality Inferior leads Abnormal ECG When compared with ECG of 06-MAY-2023 22:07, Nonspecific T wave abnormality Inferior leads is new Referred By: Sarita Padilla Electronically Signed By:FERN VIVEROS MD
[2023-05-27 13:21] LABS: MANUAL DIFF FLAG NO
[2023-05-27 13:22] LABS: Basophils Absolute Auto 0.1 X10*3/uL (0.0-0.2); Basophils Percent Auto 0.8 % (0-2); Eosinophils Absolute Auto 0.1 X10*3/uL (0.0-0.4); Eosinophils Percent Auto 1.7 % (0-4); Hematocrit 41.2 % (37.0-47.0); Hemoglobin 13.6 g/dl (12.0-16.0); Imm Gran Abs Auto 0.02 X10*3/uL (0.00-0.03); Imm Gran Pct Auto 0.3 % (0.0-0.4); Lymphocytes Absolute Auto 2.3 X10*3/uL (1.2-4.9); Lymphocytes Percent Auto 38.5 % (20-40); Mean Corpuscular Hemoglobin 29.8 pg (27.0-33.0); Mean Corpuscular Volume 90.2 fL (80.0-98.0); Mean Platelet Volume 8.6 fL (9.4-12.3); Monocytes Absolute Auto 0.4 X10*3/uL (0.1-1.2); Neutrophils Absolute Auto 3.2 x10*3/uL (2.0-8.3); Neutrophils Percent Auto 52.7 % (45-73); Platelet Count 265 X10*3/uL (160-400); Red Blood Count 4.57 X10*6/uL (4.20-5.50); Red Cell Distribution Width 11.8 % (11.0-16.0)
[2023-05-27 13:29] LABS: INTERNATIONAL NORM RATIO 1.1 (0.9-1.1); Prothrombin Time 13.7 SEC (11.1-13.3)
[2023-05-27 13:31] LABS: Partial Thromboplastin Time 34.4 SEC (26.0-36.4)
[2023-05-27 13:38] LABS: Alanine Aminotransferase 12 U/L (0-31); Albumin Level 4.4 g/dL (3.5-5.0); Alkaline Phosphatase 42 U/L (39-117); Anion Gap 11 (12-20); Aspartate Amino Transferase 17 U/L (5-31); Bilirubin Direct 0.2 mg/dL (0.0-0.5); Bilirubin Total 0.6 mg/dL (0.0-1.0); Blood Urea Nitrogen 7 mg/dL (9-16); Calcium 9.5 mg/dL (8.4-10.2); Carbon Dioxide 26 mmol/L (22-29); Chloride 105 mmol/L (96-108); Creatinine Clr Calc Pharmacy 80.7; Estimated Glomerular Filt Rate > 60; Glucose Random 96 mg/dL (60-115); Potassium 4.2 mmol/L (3.3-5.1); Sodium 138 mmol/L (135-145); Total Protein 7.3 g/dL (6.5-8.0)
[2023-05-27 13:50] LABS: Troponin-I High Sensitivity < 2.7 ng/L (<3.5-17.0)
[2023-05-27 16:43] VITALS: BP 119/67; PULSE 75; RESP 18; TEMP 36.5; O2SAT 99
[2023-05-27 19:13] VITALS: BP 105/71; PULSE 72; RESP 15; O2SAT 98
== END 2023-05-27 20:53 | disposition home or self-care (01) ==
PROVIDERS: Physician Assistant Medical; Emergency Provider Emergency Medicine; PCP Internal Medicine
DX: R07.89 Other chest pain (principal); R60.0 Localized edema; I49.8 Other specified cardiac arrhythmias; R25.2 Cramp and spasm; M79.605 Pain in left leg; Z86.711 Personal history of pulmonary embolism; Z79.01 Long term (current) use of anticoagulants; Z79.899 Other long term (current) drug therapy
CPT/HCPCS: 36415; 71046; 80048; 80076; 84484; 85025; 85610; 85730; 93005; 93971; 99284

== ENCOUNTER 2023-11-18 10:55 | Outpatient (REF) | payer BC, SELFPAY ==
--- NOTE | ~2023-11-18 | US_ITS ---
EXAMINATION: US VENOUS ULTRASOUND WITH DOPPLER LOWER EXTREMITY, LEFT CLINICAL INFORMATION: Left lower extremity deep venous thrombosis, follow-up COMPARISON: 05/27/2023 and 05/06/2023 TECHNIQUE: Ultrasound of the deep veins is performed from the hip to the calf with compression sonography and color and pulse Doppler assessment. Spectral analysis with color-flow imaging is performed. FINDINGS: There is normal venous compression and respiratory variation and augmented flow. The visualized common femoral vein, superficial femoral vein, profunda femoral vein, popliteal vein, and the trifurcation region shows no evidence of deep venous thrombosis. There is no significant popliteal fossa cyst. Previously seen thrombus within the calf veins is not identified US/US venous duplex LE LT IMPRESSION: No DVT demonstrated in the left lower extremity.
== END 2023-11-18 10:56 | disposition home or self-care (01) ==
LOC: HO.US 10:55
PROVIDERS: PCP Internal Medicine; Visit Provider Internal Medicine Medical Oncology
DX: I82.402 Acute embolism and thrombosis of unspecified deep veins of left lower extremity (principal)
CPT/HCPCS: 93971

== ENCOUNTER 2024-10-17 23:37 | Emergency (ER) | payer BC, SELFPAY ==
--- NOTE | ~2024-10-17 | XR_ITS ---
CLINICAL HISTORY: chest tightness 1 view chest x-ray. Comparison: 05/27/2023 Findings: No consolidations. Heart size normal. No acute fracture. Impression: The lungs are clear. This document has been electronically signed by: Brian Sanchez MD on 10/18/2024 00:39:21
--- NOTE | 2024-10-17 23:42 | ECG_ITS ---
Test Reason : chest tightness Blood Pressure : */* mmHG Vent. Rate : 56 BPM Atrial Rate : 56 BPM P-R Int : 164 ms QRS Dur : 82 ms QT Int : 436 ms P-R-T Axes : 64 74 44 degrees QTcB Int : 420 ms Sinus bradycardia Otherwise normal ECG When compared with ECG of 27-May-2023 13:08, No significant change was found Referred By: Generic ED Physician Electronically Signed By: DEENA RICO
[2024-10-17 23:47] VITALS: BP 107/74; PULSE 62; RESP 14; TEMP 36.3; O2SAT 98; BMI 24.6
[2024-10-18 00:02] LABS: Basophils Absolute Auto 0.1 X10*3/uL (0.0-0.2); Basophils Percent Auto 1.1 % (0-2); Eosinophils Absolute Auto 0.2 X10*3/uL (0.0-0.4); Eosinophils Percent Auto 2.5 % (0-4); Hematocrit 34.4 % (37.0-47.0); Hemoglobin 11.5 g/dl (12.0-16.0); Lymphocytes Absolute Auto 3.6 X10*3/uL (1.2-4.9); Lymphocytes Percent Auto 50.3 % (20-40); MANUAL DIFF FLAG NO; Mean Corpuscular HGB Conc 33.4 g/dl (31.0-35.0); Mean Corpuscular Hemoglobin 30.2 pg (27.0-33.0); Mean Corpuscular Volume 90.3 fL (80.0-98.0); Mean Platelet Volume 8.6 fL (9.4-12.3); Monocytes Absolute Auto 0.5 X10*3/uL (0.1-1.2); Monocytes Percent Auto 7.2 % (2-11); Neutrophils Absolute Auto 2.8 x10*3/uL (2.0-8.3); Neutrophils Percent Auto 38.9 % (45-73); Platelet Count 259 X10*3/uL (160-400); Red Blood Count 3.81 X10*6/uL (4.20-5.50); Red Cell Distribution Width 13.2 % (11.0-16.0); White Blood Count 7.2 X10*3/uL (4.8-10.8)
[2024-10-18 00:15] LABS: Alanine Aminotransferase 33 U/L (0-31); Albumin Level 4.4 g/dL (3.5-5.0); Alkaline Phosphatase 46 U/L (39-117); Anion Gap 12 (12-20); Aspartate Amino Transferase 34 U/L (5-31); Bilirubin Total 0.2 mg/dL (0.0-1.0); Blood Urea Nitrogen 12 mg/dL (9-16); Calcium 9.4 mg/dL (8.4-10.2); Carbon Dioxide 24 mmol/L (22-29); Chloride 108 mmol/L (96-108); Creatinine Clr Calc Pharmacy 84.5; Estimated Glomerular Filt Rate > 60; Glucose Random 97 mg/dL (60-115); Potassium 3.9 mmol/L (3.3-5.1); Sodium 140 mmol/L (135-145)
[2024-10-18 00:25] LABS: Troponin-I High Sensitivity < 2.7 ng/L (<3.5-17.0)
--- NOTE | 2024-10-18 00:36 | ED_ITS ---
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 About a year and a half ago after a long run she developed left leg pain and also had some chest pain. She was found to have a left leg DVT and a pulmonary embolism. She was on oral contraceptives at the time. She was on apixaban until 3 months ago. She says that her clots were attributed to the oral contraceptive. the patient says that she ran a half marathon a few days ago. This was the longest run she had done since her pulmonary embolism. She says that she had an episode tonight where she felt some midsternal discomfort in her chest that got worse when she bent at the waist. She then felt that her symptoms when into her abdomen. The symptoms did not last long, perhaps 5 seconds. She had an oxygen saturation monitor at home that showed a heart rate between 47 and 48 with a good oxygen saturation. She felt that her heart rate was fluctuating on the O2 sat monitor and ultimately decided to come to the emergency room for evaluation given her history of a previous pulmonary embolism. Here in the emergency room she has no chest pain or shortness of breath. Her symptoms only lasted a minute or so. She has had some chronic discomfort in her left leg ever since she was diagnosed with a DVT. No new discomfort in the leg today. Related Data Home Medications ?Medication ?Instructions ?Recorded ?Confirmed lorazepam 0.5 mg tablet 0.5 mg PO DAILY PRN Anxiety 05/06/23 08/25/24 Allergies Allergy/AdvReac Type Severity Reaction Status Date / Time doxycycline Allergy Rash Verified 10/17/24 23:51 codeine AdvReac Unknown Verified 10/17/24 23:51 Review of Systems 2 Review of Systems: Yes all other systems are reviewed and are negative [facility] Past Medical History Medical History (Updated 10/18/24 @ 01:56 by Fox Wallace MD) DVT (deep venous thrombosis) Pulmonary embolism Family History Family History Maternal Grandfather PE (pulmonary thromboembolism) Social History Social History Household Members: Family Housing: House Do you presently have visiting nurse or other home services: No Alcohol intake: current Alcohol intake frequency: holidays/special occasions only Alcohol type: wine Patient Tobacco Use Status: Never used Tobacco Smoked in Last 30 Days: No Second Hand Smoke Exposure: No Use of substances other than those prescribed or required for medical reasons: No Advance Directives: No Advance Directives Information Provided: Yes Do you have a plan to hurt others: No Plan Patient : No service: No Current occupational status: employed Physical Exam 2 Vital Signs: Vital Signs: Last Vital Signs Temp 98.0 F 10/18/24 00:49 Pulse 51 10/18/24 00:49 Resp 14 10/18/24 00:49 BP 103/46 L 10/18/24 00:49 Pulse Ox 98 10/18/24 00:49 O2 Del Method Room Air 10/18/24 00:49 BMI result Body Mass Index 24.6 Const: Other: The patient is awake and alert, pleasant cooperative. She does not appear ill or in distress. HEENT: Other: Face is symmetrical. Mucous membranes moist. Eyes: General: appearance normal, both eyes and all related structures Neck: Neck: Yes full ROM and Yes no lymphadenopathy Resp: Effort & Inspection: normal respiratory effort Auscultation: clear to auscultation bilaterally Cardio: Rate: bradycardic Rhythm: regular rhythm Heart sounds: S1 normal heart sound present and S2 normal heart sound present GI: Other: Abdomen is soft and nontender Skin: Other: skin is dry and unremarkable Neuro: Other: the patient is awake and alert with a normal mental status. Cranial nerves 2- 12 are intact. She moves all of her extremities normally. Extrem: Other: No peripheral edema Medical Decision Making Medical Decision Making MDM Narrative: the patient is a 39-year-old woman with a history of previous pulmonary embolism and left leg DVT. These clots were thought to be secondary to oral contraceptive use. She has been off anticoagulation for about 3 or 4 months. Today she had a brief episode of chest pain that made her concerned about the possibility of recurrent pulmonary embolism. The episode lasted about 5 seconds. She looks well. She has a negative workup including a negative D- dimer. She is reassured. I think she may go about her normal activities. She had a single episode of discomfort that lasted only about 5 seconds and has had no recurrence.. Lab Data 10/17/24 23:57 10/17/24 23:57 Labs: Lab Results 10/17/24 10/18/24 Range/Units 23:57 00:56 WBC 7.2 (4.8-10.8) X10*3/uL RBC 3.81 L (4.20-5.50) X10*6/uL Hgb 11.5 L (12.0-16.0) g/dl Hct 34.4 L (37.0-47.0) % MCV 90.3 (80.0-98.0) fL MCH 30.2 (27.0-33.0) pg MCHC 33.4 (31.0-35.0) g/dl RDW 13.2 (11.0-16.0) % Plt Count 259 (160-400) X10*3/uL MPV 8.6 L (9.4-12.3) fL Immature Gran % (Auto) 0.0 (0.0-0.4) % Neut % (Auto) 38.9 L (45-73) % Lymph % (Auto) 50.3 H (20-40) % [place] % (Auto) 7.2 (2-11) % Eos % (Auto) 2.5 (0-4) % Baso % (Auto) 1.1 (0-2) % Lymph # (Auto) 3.6 (1.2-4.9) X10*3/uL [place] # (Auto) 0.5 (0.1-1.2) X10*3/uL Eos # (Auto) 0.2 (0.0-0.4) X10*3/uL Baso # (Auto) 0.1 (0.0-0.2) X10*3/uL Abs Immat Gran (auto) 0.00 (0.00-0.03) X10*3/uL Absolute Neuts (auto) 2.8 (2.0-8.3) x10*3/uL Absolute Nucleated RBC 0.000 (0.0-0.012) X10*3/uL Nucleated RBC % (auto) 0.0 (0.0-0.2) /100WBC D-Dimer High Sensitivty < 150 NG/ML Sodium 140 (135-145) mmol/L Potassium 3.9 (3.3-5.1) mmol/L Chloride 108 (96-108) mmol/L Carbon Dioxide 24 (22-29) mmol/L Anion Gap 12 (12-20) BUN 12 (9-16) mg/dL Creatinine 0.73 (0.5-1.4) mg/dL Estim Creat Clear Calc 84.5 Estimated GFR > 60 Random Glucose 97 (60-115) mg/dL Calcium 9.4 (8.4-10.2) mg/dL Total Bilirubin 0.2 (0.0-1.0) mg/dL AST 34 H (5-31) U/L ALT 33 H (0-31) U/L Alkaline Phosphatase 46 (39-117) U/L Troponin I High Sens < 2.7 (<3.5-17.0) ng/L Total Protein 7.0 (6.5-8.0) g/dL Albumin 4.4 (3.5-5.0) g/dL Independent Interpretation I performed an independent interpretation of an: EKG Interpretation: EKG 10/06/2042 shows sinus bradycardia at 56 beats per minute. Otherwise normal EKG. Discharge Plan Discharge Clinical Impression: Chest pain Patient Disposition: Home, Self-Care Additional Instructions: Your workup tonight is very reassuring. There was no sign of a blood clot or any other obviously acutely dangerous process. Your D-dimer is normal. Your chest x-ray is normal. Other labs are normal. Your EKG is normal. I think it is very unlikely that the symptoms you experienced today represent any dangerous process. I think you may resume all of your normal activities as you would typically. Please follow up with your regular doctor as needed. Return to the emergency room if worse. Prescriptions: No Action lorazepam 0.5 mg Tablet 0.5 mg PO DAILY PRN (Reason: Anxiety) Referrals: Sabra Toro MD [Primary Care Provider] - Print Language: Frisian
[2024-10-18 00:49] VITALS: BP 103/46; PULSE 51; RESP 14; TEMP 36.7; O2SAT 98
[2024-10-18 01:48] LABS: D Dimer High Sensitivity < 150 NG/ML
[2024-10-18 02:45] VITALS: BP 103/46; PULSE 51; RESP 14; TEMP 36.7; O2SAT 98
== END 2024-10-18 02:47 | disposition home or self-care (01) ==
PROVIDERS: Emergency Provider Emergency Medicine; PCP Internal Medicine
DX: R07.9 Chest pain, unspecified (principal); R00.1 Bradycardia, unspecified; Z86.718 Personal history of other venous thrombosis and embolism
CPT/HCPCS: 36415; 71045; 80053; 84484; 85025; 85379; 93005; 99283; 99285

== ENCOUNTER → 2024-10-17 23:42 | Outpatient (BNV) | payer BC, SELFPAY | PROVIDERS: Emergency Provider Emergency Medicine; PCP Internal Medicine; Visit Provider Internal Medicine | DX: R00.1 Bradycardia, unspecified (principal) | CPT/HCPCS: 93010 ==

== ENCOUNTER → 2024-10-17 23:52 | Outpatient (BNV) | payer BC, SELFPAY | PROVIDERS: Emergency Provider Emergency Medicine; PCP Internal Medicine; Visit Provider Radiology Diagnostic Radiology | DX: R07.89 Other chest pain (principal) | CPT/HCPCS: 71045 ==